=== PATIENT | male | born 1975 | race African-American/Black ===

== ENCOUNTER 2022-09-05 13:33 | Outpatient (CLI) | payer OTHER | END 2022-09-05 13:34 | disposition home or self-care (01) | LOC: CSHRAD 13:33 | PROVIDERS: ATTEND Student in an Organized Health Care Education/Training Program | DX: M54.6 Pain in thoracic spine (principal); M25.551 Pain in right hip; R93.7 Abnormal findings on diagnostic imaging of other parts of musculoskeletal system | CPT/HCPCS: 72072; 72170 ==